=== PATIENT | male | born 1950 | race Caucasian/White ===

== ENCOUNTER 2017-05-27 02:24 | Inpatient (IN) | payer MEDICARE ==
[~2017-05-27] VITALS: Ht 152.4 cm; Wt 87.8 kg
[~2017-05-27 02:24] MED LIST: ASPI-1181 PO; CLOP75TA32 PO; FURO40TA5 PO; HUM10VIA6 SQ; LEVO50TA11 PO; LISI-617 PO; METF500T6 PO; PANT40TA25 PO; PIND10TA2 PO; SIMV10TA6 PO
[2017-05-27] MEDS ORDERED: ONDANSETRON HCL MDV 20ML 2 MG/ML VIAL ONE ×2 (02:57→06:16)
[2017-05-27] MEDS ORDERED: SODIUM CHLORIDE 0.9% 1000ML 1,000 ML IV ONE ×2 (03:27→04:55)
[2017-05-27] MEDS ORDERED: MORPHINE SULFATE 2 MG/ML 1ML SYG ONE (03:27)
[2017-05-27 03:31] LABS: APPEARANCE,URINE Clear (CLEAR); BILIRUBIN,URINE Negative (NEGATIVE); COLOR,URINE Yellow (YELLOW); GLUCOSE, URINE (UA) Negative (NEGATIVE); KETONES,URINE Negative (NEGATIVE); LEUKOCYTE ESTERASE ,URINE Trace (NEGATIVE); NITRATE,URINE Negative (NEGATIVE); OCCULT BLOOD,URINE Negative (NEGATIVE); PROTEIN,URINE POS 1+ (NEGATIVE); UROBILINOGEN,URINE 0.2 mg/dL (0.2-1.0)
[2017-05-27 03:43] LABS: BACTERIA,URINE None Seen /HPF (None Seen); RBC,URINE None Seen /HPF (0-1); SQUAMOUS EPITHELIAL CELL,UR None Seen /HPF (0-2); WBC,URINE 0-1 /HPF (0-1)
[2017-05-27 04:09] LABS: BASOPHILS % (AUTO) 0.6 % (0.0-5.0); EOSINOPHILS % (AUTO) 2.4 % (0.0-8.0); HEMATOCRIT 30.1 % (42-54); LYMPHOCYTES % (AUTO) 20.8 % (21.0-51.0); MEAN CORPUSCULAR HGB CONC 35.3 g/dL (32.0-36.0); MEAN CORPUSCULAR VOLUME 87.9 fL (79-99); MONOCYTES % (AUTO) 8.6 % (3.0-13.0); NEUTROPHILS % (AUTO) 67.6 % (40.0-77.0); PLATELET COUNT (AUTO) 323 K/uL (130-400); RED BLOOD CELL COUNT(AUTO) 3.42 MIL/uL (4.50-6.20); WHITE BLOOD COUNT (AUTO) 7.3 K/uL (4.8-10.8)
[2017-05-27 04:16] LABS: CREATININE 0.9 mg/dL (0.5-1.5); POTASSIUM 3.9 mmol/L (3.5-5.1)
[2017-05-27 04:21] LABS: ALBUMIN 2.1 g/dL (3.5-5.0); BILIRUBIN,TOTAL 0.2 mg/dL (0.2-1.0); TOTAL PROTEIN, SERUM 5.5 g/dL (6.0-8.3)
[2017-05-27] MEDS ORDERED: ASPIRIN 81MG TAB.CHEW ONE (04:55)
[2017-05-27] MEDS ORDERED: RANI-477 PO (12:27)
[2017-05-27] MEDS ORDERED: ACET-2743 PO (12:27)
[2017-05-27] MEDS ORDERED: VIT1LOZE PO (12:27)
[2017-05-27] MEDS ORDERED: DOCU100T PO (12:27)
[2017-05-27] MEDS ORDERED: MULT-1192 PO (12:27)
[2017-05-27] MEDS ORDERED: CLOP75TA14 PO (12:27)
[2017-05-27] MEDS ORDERED: MAAL30 PO (12:27)
[2017-05-27] MEDS ORDERED: ASCO500T10 PO (12:27)
[2017-05-27] MEDS ORDERED: SULF1TAB42 PO (12:27)
[2017-05-27] MEDS ORDERED: LACT10SO9 PO (12:27)
[2017-05-27] MEDS ORDERED: BACL10TA PO (12:27)
[2017-05-27] MEDS ORDERED: TRAM50TA4 PO (12:27)
[2017-05-27] MEDS ORDERED: GABA-529 PO (12:27)
[2017-05-27 12:55] VITALS: BP 113/59
[2017-05-27 17:00] VITALS: BP 104/62
[2017-05-27 20:00] VITALS: BP 111/65
[2017-05-27] MEDS ORDERED: ACETAMINOPHEN EXTRA STRENGTH 500 MG TABLET PO PRN (20:15)
[2017-05-27] MEDS ORDERED: ONDANSETRON HCL MDV 20ML 2 MG/ML VIAL IVP PRN (20:15)
[2017-05-27 20:39] LABS: CREATINE KINASE MB 2.3 ng/mL (0.5-3.6); CREATINE KINASE, TOTAL 70 U/L (21-232); MYOGLOBIN 132 ng/mL (10-92); TROPONIN I < 0.04 ng/mL (0.00-0.06)
[2017-05-27] MEDS ORDERED: DEXTROSE 50%-WATER 50 ML DISP.SYRIN IV PRN (20:45)
[2017-05-27] MEDS ORDERED: GLUCAGON 1MG KIT 1 MG ML IM PRN (20:45)
[2017-05-27] MEDS: INSULIN HUMULIN R 100 UNIT/ML 3ML SQ SCH (21:00)
[2017-05-27] MEDS: ASCORBIC ACID 500 MG TAB PO SCH (21:28)
[2017-05-27] MEDS: GABAPENTIN 100 MG CAPSULE PO SCH (21:28)
[2017-05-27] MEDS: ALPRAZOLAM 0.25 MG TABLET PO PRN (21:28)
[2017-05-27] MEDS: TRAMADOL HCL 50 MG TABLET PO PRN (21:30)
[2017-05-28] VITALS (7 sets, daily range): BP systolic 105–138; BP diastolic 58–78
[2017-05-28] MEDS ORDERED: HALOPERIDOL LACTATE 5 MG/ML VIAL IV SCH (00:15)
[2017-05-28 02:39] LABS: CREATINE KINASE MB 1.8 ng/mL (0.5-3.6); CREATINE KINASE, TOTAL 61 U/L (21-232); MYOGLOBIN 120 ng/mL (10-92); TROPONIN I < 0.04 ng/mL (0.00-0.06)
[2017-05-28] MEDS: TRAMADOL HCL 50 MG TABLET PO PRN ×4 (03:51→22:48)
[2017-05-28] MEDS: ALPRAZOLAM 0.25 MG TABLET PO PRN ×4 (03:51→22:48)
[2017-05-28] MEDS: INSULIN HUMULIN R 100 UNIT/ML 3ML SQ SCH ×4 (06:04→21:00)
[2017-05-28] MEDS: LEVOTHYROXINE 50 MCG TABLET PO SCH (06:08)
[2017-05-28 08:53] LABS: CREATINE KINASE MB 1.9 ng/mL (0.5-3.6); CREATINE KINASE, TOTAL 49 U/L (21-232); MYOGLOBIN 102 ng/mL (10-92); TROPONIN I < 0.04 ng/mL (0.00-0.06)
[2017-05-28] MEDS: Simvastatin 10 MG PO SCH (09:00)
[2017-05-28] MEDS: ASPIRIN 81 MG EC TAB PO SCH (09:21)
[2017-05-28] MEDS: METFORMIN HCL 500 MG TABLET PO SCH (09:21)
[2017-05-28] MEDS: LACTULOSE 20 GM/30 ML UDCUP PO SCH (09:21)
[2017-05-28] MEDS: BACLOFEN 10 MG TABLET PO SCH (09:21)
[2017-05-28] MEDS: LISINOPRIL 5 MG TABLET PO SCH (09:22)
[2017-05-28] MEDS: ASCORBIC ACID 500 MG TAB PO SCH ×2 (09:22→22:47)
[2017-05-28] MEDS: CLOPIDOGREL BISULFATE 75 MG TAB PO SCH (09:22)
[2017-05-28] MEDS: FUROSEMIDE 40 MG TABLET PO SCH (09:22)
[2017-05-28] MEDS: MULTIVITAMIN TABLET PO SCH (09:22)
[2017-05-28] MEDS: GABAPENTIN 100 MG CAPSULE PO SCH ×2 (10:40→22:48)
[2017-05-29 03:00] VITALS: BP 111/52
[2017-05-29 04:04] LABS: HEMATOCRIT 28.7 % (42-54); MEAN CORPUSCULAR HEMOGLOBIN 32.1 pg (27.0-33.0); MEAN CORPUSCULAR HGB CONC 36.6 g/dL (32.0-36.0); MEAN CORPUSCULAR VOLUME 87.7 fL (79-99); PLATELET COUNT (AUTO) 302 K/uL (130-400); RED BLOOD CELL COUNT(AUTO) 3.27 MIL/uL (4.50-6.20); RED CELL DISTRIBUTION WIDTH 15.3 % (11.0-15.5); WHITE BLOOD COUNT (AUTO) 7.3 K/uL (4.8-10.8)
[2017-05-29 04:18] LABS: CREATININE 0.6 mg/dL (0.5-1.5); MAGNESIUM 1.4 mg/dL (1.80-2.40); POTASSIUM 3.7 mmol/L (3.5-5.1)
[2017-05-29] MEDS: LEVOTHYROXINE 50 MCG TABLET PO SCH (06:37)
[2017-05-29] MEDS: TRAMADOL HCL 50 MG TABLET PO PRN ×2 (06:38→14:02)
[2017-05-29] MEDS: ALPRAZOLAM 0.25 MG TABLET PO PRN ×2 (06:38→14:02)
[2017-05-29] MEDS: INSULIN HUMULIN R 100 UNIT/ML 3ML SQ SCH ×2 (06:38→11:30)
[2017-05-29 07:00] VITALS: BP 111/52
[2017-05-29] MEDS: Simvastatin 10 MG PO SCH (09:00)
[2017-05-29] MEDS: METFORMIN HCL 500 MG TABLET PO SCH (09:46)
[2017-05-29] MEDS: LISINOPRIL 5 MG TABLET PO SCH (09:46)
[2017-05-29] MEDS: GABAPENTIN 100 MG CAPSULE PO SCH (09:46)
[2017-05-29] MEDS: FUROSEMIDE 40 MG TABLET PO SCH (09:46)
[2017-05-29] MEDS: BACLOFEN 10 MG TABLET PO SCH (09:46)
[2017-05-29] MEDS: ASPIRIN 81 MG EC TAB PO SCH (09:46)
[2017-05-29] MEDS: LACTULOSE 20 GM/30 ML UDCUP PO SCH (09:47)
[2017-05-29] MEDS: ASCORBIC ACID 500 MG TAB PO SCH (09:47)
[2017-05-29] MEDS: CLOPIDOGREL BISULFATE 75 MG TAB PO SCH (09:47)
[2017-05-29] MEDS: MULTIVITAMIN TABLET PO SCH (09:47)
[2017-05-29] MEDS ORDERED: MAGNESIUM 2GM PREMIX 50ML 50 ML IV SCH (10:00)
[2017-05-29 11:00] VITALS: BP 108/52
[2017-05-29 16:00] VITALS: BP 128/56
[2017-05-29 19:10] VITALS: BP 104/50
== END 2017-05-29 20:00 | DRG 313 ==
LOC: EDH 02:24 → EDHIP 06:40 → 3CH 17:09
PROVIDERS: ADMIT Family Medicine; ATTEND Family Medicine
DX: R07.9 Chest pain, unspecified (principal); I25.10 Atherosclerotic heart disease of native coronary artery without angina pectoris; E11.22 Type 2 diabetes mellitus with diabetic chronic kidney disease; E11.40 Type 2 diabetes mellitus with diabetic neuropathy, unspecified; E11.51 Type 2 diabetes mellitus with diabetic peripheral angiopathy without gangrene; E11.319 Type 2 diabetes mellitus with unspecified diabetic retinopathy without macular edema; E78.5 Hyperlipidemia, unspecified; E86.0 Dehydration; I12.9 Hypertensive chronic kidney disease with stage 1 through stage 4 chronic kidney disease, or unspecified chronic kidney disease; N18.3 Chronic kidney disease, stage 3 (moderate); Z86.73 Personal history of transient ischemic attack (TIA), and cerebral infarction without residual deficits; Z95.5 Presence of coronary angioplasty implant and graft; Z89.511 Acquired absence of right leg below knee; Z89.512 Acquired absence of left leg below knee; Z98.49 Cataract extraction status, unspecified eye; Z88.8 Allergy status to other drugs, medicaments and biological substances
CPT/HCPCS: 36415; 80048; 80053; 81001; 82533; 82550; 82553; 82948; 83735; 83874; 84484; 85025; 85027; 93005; 93306; 99291; J1630; J3475; J7030